=== PATIENT | male | born 1965 | race Caucasian/White ===

== ENCOUNTER 2019-11-02 06:13 | Day surgery (SDC) | payer OTHER, SELFPAY | END 2019-11-02 08:49 | disposition home or self-care (01) | PROVIDERS: PCP Family Medicine; Visit Provider Surgery | DX: Z12.11 Encounter for screening for malignant neoplasm of colon (principal); K57.90 Diverticulosis of intestine, part unspecified, without perforation or abscess without bleeding; D12.3 Benign neoplasm of transverse colon | CPT/HCPCS: 45380; 812; 88305; J2704; J7120 ==

== ENCOUNTER 2020-03-27 12:25 | Outpatient (CLI) | payer OTHER, SELFPAY ==
--- NOTE | ~2020-03-27 | XR_ITS ---
EXAMINATION: XR soft tissue neck DATE: 03/27/2020 12:53 INDICATION: Throat pain. Neck pain. [place] syndrome. TECHNIQUE: 2 views of the neck soft tissues were obtained. COMPARISON: None. FINDINGS: The adenoids, palatine tonsils, epiglottis, prevertebral soft tissues, and airway are dorothy l. No radiopaque foreign body. There is moderate cervical spondylosis. There is no visible calcificat ion or ossification of the stylohyoid ligaments to suggest [place] syndrome. IMPRESSION: 1. No evidence of [place] syndrome. 2. Moderate cervical spondylosis. Reviewed, dictated and finalized at location A.
== END 2020-03-27 12:26 | disposition home or self-care (01) ==
LOC: CHSIMG 12:28
PROVIDERS: PCP Family Medicine; Visit Provider Otolaryngology
DX: M54.2 Cervicalgia (principal); R07.0 Pain in throat; M24.20 Disorder of ligament, unspecified site
CPT/HCPCS: 70360

== ENCOUNTER 2020-07-04 12:14 | Outpatient (CLI) | payer OTHER, SELFPAY ==
--- NOTE | 2020-07-04 12:22 | ECHO_ITS ---
Patient Info Name: Devonte Olivera Age: 54 years : 1965 Gender: Male Ht: 68 in Wt: 195 lbs BSA: 2.08 m2 HR: 58 bpm BP: 142 / 79 mmHg Technical Quality: Fair Exam Date: 07/04/2020 12:25 PM Exam Location: [facility] Patient Status: Outpatient Admit Date: 07/04/2020 Staff Ordering Physician: Zachary Zimmerman MD Orthodontic Technician Assistant: Tamara Fisher RDCS Attending Provider: Zachary Zimmerman MD Referring Physician: Erasmo MURILLO; Exam Type: CA echo doppler color flow Study Info Indications I10 - Essential (primary) hypertension Complete two-dimensional, color flow and Doppler transthoracic echocardiogram is performed with contrast to opacify the left ventricle and to improve the deliniation of the left ventricle endocardial borders. Contrast/Agitated Saline Contrast/Ag. Saline: Definity Amount: 3.00 ml New IV Access: Antecubital Space and Right Site Condition: No extravasation, Site dressing applied and IV removed History/Risk Factors Hypertension: Yes Dyslipidemia: No Obesity: Yes Family History: Diabetes Mellitus, Coronary Artery Disease Frailty Scale (CSHA): 2: Well Summary 1. Left ventricular chamber dimension is normal. 2. Definity contrast administered improved wall motion interpretation. 3. Left ventricular systolic function is normal, estimated at 60-65%. 4. There is moderately increased left ventricular wall thickness. 5. The left ventricular diastolic function is grade I diastolic dysfunction. 6. E/e' 5 is not elevated. 7. There is mild aortic valve regurgitation. 8. There is mild pulmonic regurgitation. 9. Aortic sinotubular junction is mildly dilated at 4.1 cm. Left Ventricle E/e' 5 is not elevated. Definity contrast administered improved wall motion interpretation. Left ventricular chamber dimension is normal. Left ventricular systolic function is normal, estimated at 60-65%. There is moderately increased left ventricular wall thickness. The left ventricular diastolic function is grade I diastolic dysfunction. Right Ventricle Right ventricular chamber dimension is normal. Right ventricular systolic function is normal. Left Atria Left atrial chamber dimension is normal. Right Atria Right atrial chamber dimension is normal. Aortic Valve The aortic valve is trileaflet. There is no aortic valve stenosis. There is mild aortic valve regurgitation. Pulmonic Valve There is mild pulmonic regurgitation. Mitral Valve There is no mitral valve stenosis. There is no mitral valve regurgitation. Tricuspid Valve There is no tricuspid valve regurgitation. Pericardium/Pleural There is no pericardial effusion. Inferior Vena Cava Normal inferior vena cava with >50% collapse upon inspiration consistent with normal right atrial pressure, 5 mmHg. Aorta Aortic sinotubular junction is mildly dilated at 4.1 cm. The aortic root size at the sinus of Valsalva is normal. Left Ventricular Outflow Tract Name Value Normal LVOT 2D LVOT Diameter 2.4 cm LVOT Doppler LVOT Peak Velocity
== END 2020-07-04 12:15 | disposition home or self-care (01) ==
LOC: CHSIMG 12:16
PROVIDERS: PCP Family Medicine; Visit Provider Family Medicine
DX: I10 Essential (primary) hypertension (principal)
CPT/HCPCS: C8929

== ENCOUNTER 2021-08-28 11:16 | Emergency (ER) | payer OTHER, SELFPAY ==
[2021-08-28 11:18] VITALS: BP 170/103; PULSE 65; RESP 14; TEMP 36.1; O2SAT 100
[2021-08-28] MEDS: KETOROLAC 30 MG/ML VIAL (*BKC) IM (13:51)
--- NOTE | 2021-08-28 14:23 | ED.GENADULT ---
HPI - General Adult General Chief complaint: Unspecified Stated complaint: attacks Time Seen by Provider: 08/28/21 12:54 Source: patient History of Present Illness HPI narrative: Patient presents with intermittent jaw pain. 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 He has previously seen ENT at [facility] have tried simple injection which improved his symptoms for approximate 1 year. He has had a slight increase over the past couple weeks was started on carbamazepine however today his symptoms were more severe so he came to the ER for evaluation. Reports he is getting sharp shooting pains in his neck every 10 minutes similar to his prior ligamentous pain. He denies any recent trauma denies any fevers, cough, congestion. In between the episodes he feels normal denies any sore throat or difficulty breathing these episodes are transient and do cause a choking sensation. Related Data Home Medications Medication Instructions Recorded Confirmed lisinopril 10 mg tablet 10 mg PO DAILY 09/14/19 09/22/19 carbamazepine 100 mg 100 mg PO Q12H 03/27/20 capsule,extended release [id number] Allergies Allergy/AdvReac Type Severity Reaction Status Date / Time No Known Allergies Allergy Unverified 08/28/21 12:49 Review of Systems Review of Systems: CONSTITUTIONAL: Denies fever, chills, or sweats. EYES: Denies visual changes, redness, or discharge. ENT: Denies rhinorrhea, congestion, sore throat, or otalgia. CARDIOVASCULAR: Denies chest pain, palpitations, or edema. RESPIRATORY: Denies cough or dyspnea. GASTROINTESTINAL: Denies abdominal pain, nausea, vomiting, or diarrhea. GENITOURINARY: Denies dysuria or hematuria. SKIN: Denies rash or itching. MUSCULOSKELETAL: Denies back pain, joint pain, or myalgia. NEUROLOGIC: Denies headache, numbness, dizziness, or weakness. PSYCHIATRIC: Denies anxiety or depression. All systems reviewed & are unremarkable except as noted in HPI and below PMFSH Past Medical History Medical History (Updated 08/28/21 @ 14:27 by Satish Marti MD) Anxiety Erectile disorder due to medical condition in male GERD (gastroesophageal reflux disease) HTN (hypertension) Periumbilic abdominal tenderness Surgical History Surgical History H/O sinus surgery History of adenoidectomy Hx of tonsillectomy Family History Family History Unknown Diabetes mellitus Drug abuse Cerebrovascular accident Hypertension Kidney disease Cancer Sibling Aortic aneurysm Social History Social History Smoking status: Never smoker Alcohol intake: current Exam Narrative: GENERAL: Well-appearing, well-nourished, and in no acute distress. HEAD: Normocephalic, atraumatic. EYES: PERRLA and EOMI. ENT: Nares clear, no rhinorrhea or epistaxis. Mucous membranes moist. NECK: Supple. No masses. No JVD CHEST: Clear to auscultation. No respiratory distress. No wheezes rales or rhonchi HEART: Regular rate and rhythm. No murmur heard. Normal peripheral pulses. EXTREMITIES: Normal range of motion. No edema. SKIN: Warm, dry, no rash. NEURO: No focal deficits. Alert and oriented x3. PSYCH: Normal mood and affect. Course Reevaluation(s) Reevaluation #1: Patient is resting comfortably attempt to get a hold of his ENT doctor at [facility] however they are out of town patient did schedule appointment with them early next week. Discussed case with ENT at this facility does not perform the triamcinolone injections. Date: 08/28/21 Time: 14:25 Vital Signs Vital signs: Vital Signs Temperature 36.1 C L 08/28/21 11:18 Pulse Rate 65 08/28/21 11:18 Respiratory Rate 14 08/28/21 11:18 Blood Pressure 170/103 H 08/28/21 11:18 Pulse Oximetry 100 08/28/21 11:18 Temperature 36.1 C L 08/28/21 11:
== END 2021-08-28 14:34 | disposition home or self-care (01) ==
PROVIDERS: Emergency Provider Emergency Medicine; PCP Family Medicine
DX: M54.2 Cervicalgia (principal); I10 Essential (primary) hypertension
CPT/HCPCS: 96372; 99283; J1885

== ENCOUNTER 2022-05-04 10:31 | Outpatient (CLI) | payer OTHER, SELFPAY ==
[2022-05-04 11:06] LABS: SARS-CoV-2 Ag Negative (Negative)
== END 2022-05-04 10:32 | disposition home or self-care (01) ==
LOC: CHSLAB 10:36
PROVIDERS: PCP Family Medicine; Visit Provider Nurse Practitioner Family
DX: Z20.822 Contact with and (suspected) exposure to COVID-19 (principal)
CPT/HCPCS: 87426; C9803

== ENCOUNTER 2022-06-24 11:22 | Outpatient (CLI) | payer OTHER, SELFPAY ==
--- NOTE | ~2022-06-24 | XR_ITS ---
EXAM: XR foot RT min 3V, XR foot LT min 3V DATE: 06/24/2022 11:51 (accession [id number]), 06/24/2022 11:53 (accession [id number]) HISTORY: pain @ RT first digit/MT saadia. w/ flex ext . COMPARISON: None available. FINDINGS: Normal mineralization. No fracture or dislocation. No lytic or blastic lesion. Moderate de generative joint disease at the first MTP joints bilaterally. Achilles enthesopathy on the right. Macario ateral plantar enthesopathy. No erosion or periosteal change. Soft tissues within normal limits. IMPRESSION: Moderate osteophytosis of the bilateral MTP joints, slightly worse on the right. Reviewed, dictated and finalized at location K. IMPRESSION: Moderate osteophytosis of the bilateral MTP joints, slightly worse on the right.
== END 2022-06-24 11:23 | disposition home or self-care (01) ==
LOC: CHSIMG 11:25
PROVIDERS: PCP Family Medicine; Visit Provider Family Medicine
DX: M79.671 Pain in right foot (principal)
CPT/HCPCS: 73630

== ENCOUNTER 2022-09-09 15:50 | Outpatient (CLI) | payer OTHER, SELFPAY ==
--- NOTE | ~2022-09-09 | XR_ITS ---
Cervical Spine: AP, lateral, open-mouth views Clinical History: Pain Findings: There is straightening of the normal cervical lordosis. No fracture evident. Grade 1 nancy listhesis of C3 over C4 measures 3 mm. There is moderate degenerative disc change at C5-C6 and C6-C7. The intervertebral disc spaces are well maintained. Pre-vertebral soft tissues are unremarkable. Impression: 3 mm anterolisthesis of C3 over C4. Degenerative disc changes, as above. Reviewed, dictated and finalized at [facility]. 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 Degenerative disc changes, as above.
== END 2022-09-09 15:51 | disposition home or self-care (01) ==
LOC: CHSIMG 15:52
PROVIDERS: PCP Family Medicine; Visit Provider Family Medicine
DX: M54.2 Cervicalgia (principal); M43.12 Spondylolisthesis, cervical region
CPT/HCPCS: 72050

== ENCOUNTER 2022-09-24 16:19 | Outpatient (RCR) | payer OTHER, SELFPAY ==
--- NOTE | 2022-09-24 17:21 | PTOPEVAL1 ---
Assessment and note entered by JT File, PT Evaluation Information Assessment Status Evaluation Diagnosis cervicalgia Onset 08/20/22 Subjective Information patient reports he is having pinched nerve symptoms from his neck. he reports numbness in the L hand. he reports it started out as constant, but is now intermittent. he reports he also has contractions in the triceps and forearm of the L arm. he reports he has been having pain since the beginning of august. he reports no change in activity or injury. 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 he reports he has had an xray of the cervical spine. he reports he has not had an MRI. he reports his numbness is not reducing his sensation, but feels deep in the hand . he reports he has been doing some neck stretches on his own at home. he reports he was taking some mm relaxors but stopped due to side effects. alec denies any dizziness, blurred vision, or double vision. he reports no lightheadedness. Reported Pain Level Pain Score 1: Self Report Assessment PT Clinical Summary mr. issa presents to skilled PT services for neck and L UE pain. he presents this date with signs and symptoms consistent with a L cervical radiculopathy from DDD of the lower cervical spine . he would benefit from continued skilled PT to improve his objective/functional deficits and progress towards a return to his prior level functional activity performance/quality of life. Plan of Care Interventions Electrical Stimulation,Hot Pack/Cold Pack,Manual Therapy,Mechanical Traction,Patient/Caregiver Educati,Therapeutic Activities,Therapeutic Exercise PT Services Indicated Yes Treatment Frequency and 3x weekly for 12 visits Duration These treatments will address the objective and functional deficits as defined above. The patient will be advanced safely and appropriately in order for the patient to progress towards his/her prior level of function. Additional exercises will be introduced and as well as a comprehensive home exercise program upon discharge, if needed, ?to ensure carryover of functional gains achieved in the clinic. This treatment plan has been reviewed and agreement upon by the patient.
--- NOTE | 2022-10-14 08:23 | PCPTNOTE ---
Mr. Olivera has attended a total of 8 treatment sessions thus far. Treatment has focused on manual techniques to reduce pain, mechanical traction to reduce left u.e. radicular symptoms and therapeutic exercise addressing postural awareness. Since beginning treatment pt. has demonstrated improvements in overall cervical spine mobility and reduction in left u.e. radicular symptoms. Recommend continued skilled PT to continue to improve postural awareness to continue to reduce neck pain and left u.e. radiculopathy. Thank you for the referral of this patient. Bairno Guerrero, MPT
--- NOTE | 2022-10-14 08:28 | PCPTNOTE ---
Mr. Olivera has attended a total of 8 treatment sessions. Treatment thus far has consisted of therapeutic exercise addressing strength and postural control, manual therapy techniques to improve soft tissue mobility, mechanical traction and other modalities to reduce pain. Pt. has demonstrated progress in regards to cervical spine rotation and reported reduction in radicular symptoms into the left u.e. Pt. has 4 remaining sessions on his current POC and recommend continued skilled PT per POC to continue to reduce pain and improve postural awareness. Thank you for the referral of this patient. Bairon Guerrero, MPT
--- NOTE | 2022-10-29 06:50 | BUPTOPEVAL1 ---
Assessment and note entered by JT File, PT Evaluation Information Assessment Status Re-evaluation Diagnosis cervicalgia Onset 08/20/22 Subjective Information patient presents to skilled PT for his 12th skilled therapy visit this date. he reports prior to earlier this week he had no seen much improvement in his symptoms. however, he reports with the addition of 1st rib mobs he experienced nearly no symptoms for almost a full day. he reports he is hopeful continuing therapy to work on this more will alleviate all of his symptoms for good. Reported Pain Level Pain Score 0: Self Report Pain Score 3: Self Report Assessment PT Clinical Summary mr. issa presents to skilled PT services for his 12th skilled therapy visit this date. today he reports continued radicualr symptoms in the L UE. however, he reports he did have a bout of no symptosm for a whole day after the initiation of 1st rib mobs. he has met goals for HEP performance and rom of the cervical spine, and is progressing towards achievement of all other goals. he would benefit from continued skilled PT to address the 1st rib mobility, continue with cervical radiculopathy treatment, and meet his remaining unmet goals. Plan of Care Interventions Electrical Stimulation,Hot Pack/Cold Pack,Manual Therapy,Mechanical Traction,Patient/Caregiver Educati,Therapeutic Activities,Therapeutic Exercise PT Services Indicated Yes Treatment Frequency and continue skilled PT 2x weekly for 6 more visits Duration These treatments will address the objective and functional deficits as defined above. The patient will be advanced safely and appropriately in order for the patient to progress towards his/her prior level of function. Additional exercises will be introduced and as well as a comprehensive home exercise program upon discharge, if needed, ?to ensure carryover of functional gains achieved in the clinic. This treatment plan has been reviewed and agreement upon by the patient.
== END 2022-11-11 15:50 | disposition home or self-care (01) ==
LOC: CHSPT 16:19
PROVIDERS: PCP Family Medicine; Visit Provider Family Medicine
DX: M54.2 Cervicalgia (principal)
CPT/HCPCS: 97012; 97014; 97110; 97140; 97161; G0283

== ENCOUNTER → 2022-10-22 15:54 | Outpatient (CLI) | payer OTHER, SELFPAY ==
--- NOTE | ~2022-10-22 | MR_ITS ---
EXAMINATION: MR cervical spine wo con DATE: 10/22/2022 16:33 INDICATION: Neck pain. TECHNIQUE: Magnetic resonance imaging (MRI) of the cervical spine was performed without intravenous c ontrast. COMPARISON: Cervical spine radiographs 09/09/2022 FINDINGS: There is 4 degrees dextrocurvature of cervical spine. There is kyphosis of cervical spine. There is 2 mm anterolisthesis of C3 on C4. Vertebral body heights are normal. There is moderately dec reased disc height at C3-C4, mildly decreased disc height at C4-C5, and severely decreased disc heigh t at C5-C6 and C6-C7. The spinal cord signal intensity is normal. The following disc levels are speci fically discussed: C2-C3: The disc does not extend beyond the endplate margin. There is mild bilateral uncovertebral donna nt osteoarthritis. There is severe right and moderate left facet joint osteoarthritis. There is moder ate right and mild left neural foraminal stenosis. There is no central canal stenosis. C3-C4: The disc is bulging. There is moderate right and severe left uncovertebral joint osteoarthriti s. There is moderate right and severe left facet joint osteoarthritis. There is mild right and modera te left neural foraminal stenosis. There is mild central canal stenosis. C4-C5: The disc does not extend beyond the endplate margin. There is mild bilateral uncovertebral donna nt osteoarthritis. There is mild right and severe left facet joint osteoarthritis. There is mild righ t and moderate left neural foraminal stenosis. There is no central canal stenosis. C5-C6: The disc is bulging. There is severe bilateral uncovertebral joint osteoarthritis. There is mi ld bilateral facet joint osteoarthritis. There is moderate bilateral neural foraminal stenosis. There is mild central canal stenosis. C6-C7: The disc is bulging. There is severe bilateral uncovertebral joint osteoarthritis. There is se niall bilateral facet joint osteoarthritis. There is moderate bilateral neural foraminal stenosis. The re is mild central canal stenosis. C7-T1: The disc does not extend beyond the endplate margin. There is no uncovertebral joint osteoarth ritis. There is mild right and severe left facet joint osteoarthritis. There is mild bilateral neural foraminal stenosis. There is no central canal stenosis. IMPRESSION: 1. Severe cervical spondylosis. Reviewed, dictated and finalized at location A. OLOGY TECH
== END ==
PROVIDERS: PCP Family Medicine; Visit Provider Family Medicine
DX: M54.2 Cervicalgia (principal); M43.02 Spondylolysis, cervical region
CPT/HCPCS: 72141

== ENCOUNTER 2023-10-08 16:25 | Outpatient (RCR) | payer OTHER, SELFPAY ==
--- NOTE | 2023-10-05 10:00 | PCPTNOTE ---
patient's evaluation today was rescheduled to this Wednesday at 1645.
--- NOTE | 2023-10-08 17:34 | OPREHPOC ---
Outpatient Therapy Plan of Care This is a Multidisciplinary Plan of Care that may contain components documented by all disciplines (PT, OT, and ST.) PT Problem 1 PT Problem #1 Knowledge Deficit PT Goal 1 Goal 1. independent and compliant with HEP Target Visit 5 PT Problem 2 PT Problem #2 Pain PT Goal 1 Goal 1. decrease pain at worst to 2/10 in the R posterior neck Target Visit 9 PT Problem 3 PT Problem #3 Impaired Functional Mobil PT Goal 1 Goal 1. patient to report no tenderness to palpation. 2. no pain with combined R cervical rotation and extension 3. NDI to display 6% or less functional deficits 4. 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 Target Visit 9
--- NOTE | 2023-10-08 17:35 | PTOPEVAL1 ---
Assessment and note entered by JT File, PT Evaluation Information Assessment Status Evaluation Diagnosis cervical spondylosis Onset 09/29/23 Subjective Information patient reports he had radio-frequency ablation on the R side on 08/06/23. he reports since this procedure he has been left with numbness in the back of the neck. he reports there is one spot in the back of the neck that is tight and painful. he reports he cannot get it to release. he reports he has not had any injections for this issues, but has tried several meds for this issue. he reports he has increased symptoms in this area with poor posture, especially prolonged poor posture. 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 he reports he is having no UE radicular symptoms. Reported Pain Level Pain Score 3: Self Report Assessment PT Clinical Summary mr. ryder is a 57 yo man who presents to skilled PT services for evaluation and treatment of R posterior neck pain following radio frequency ablation late last year. he presents with tenderness in the R upper cervical spine that is muscular in presentation. likely the levator scapuale is involved. he would benefit from continued skilled PT to improve his objective/ functional deficits and return to his prior level functional activity performance/quality of life. Plan of Care Interventions Electrical Stimulation,Hot Pack/Cold Pack,Manual Therapy,Mechanical Traction,Neuro Re-education, Patient/Caregiver Educati,Therapeutic Activities, Therapeutic Exercise,Ultrasound PT Services Indicated Yes Treatment Frequency and 3x weekly for 9 visits Duration These treatments will address the objective and functional deficits as defined above. The patient will be advanced safely and appropriately in order for the patient to progress towards his/her prior level of function. Additional exercises will be introduced and as well as a comprehensive home exercise program upon discharge, if needed, ?to ensure carryover of functional gains achieved in the clinic. This treatment plan has been reviewed and agreement upon by the patient.
== END 2023-10-21 20:00 | disposition home or self-care (01) ==
LOC: CHSPT 16:25
PROVIDERS: Visit Provider Nurse Practitioner Family
DX: M47.812 Spondylosis without myelopathy or radiculopathy, cervical region (principal)
CPT/HCPCS: 97014; 97110; 97140; 97161; G0283

== ENCOUNTER 2024-03-08 09:37 | Outpatient (CLI) | payer OTHER, SELFPAY ==
--- NOTE | ~2024-03-08 | CT_ITS ---
CT soft tissue neck w con Ordering provider: Diana Espana History: 58 years Male with . neck throat pain, neck mass R side . Comparison: None. Technique: CT soft tissues neck was performed with contrast. Radiation reduction technique utilized. DLP is 427.06 mGy. Findings: LOWER HEAD: The visualized brain parenchyma, optic globes/orbits and mastoids are normal. The visua lized paranasal sinuses are well aerated. SALIVARY GLANDS: Normal. THYROID: Normal. SUPRAHYOID DEEP SPACES: Enlarged lymph nodes in the posterior triangles are noted with the largest me asures 1.2 cm. Enlarged lymph node in the right and left parapharyngeal spaces is noted with the larg est on the left side measures 1.5 cm. The largest on the right side is also 1.5 cm. CAROTID ARTERIES: Retropharyngeal left carotid arterial otherwise, normal. JUGULAR VEINS: Normal. TONSILS: Normal. ORAL CAVITY: Partially obscured by dental amalgam but normal as visualized. PHARYNX, LARYNX AND TRACHEA: Patent and normal. No prevertebral soft tissue swelling. SUPERFICIAL SOFT TISSUES: Normal. No lymphadenopathy or neck mass. THORACIC INLET/VISUALIZED UPPER CHEST: Normal. SKELETAL: Age appropriate degenerative changes. IMPRESSION: 1. Bilateral lymphadenopathy in the posterior triangle and in the parapharyngeal spaces otherwise, n o definite abnormality seen. Reviewed, dictated and finalized at location A. IMPRESSION: 1. Bilateral lymphadenopathy in the posterior triangle and in the parapharynge al spaces otherwise, no definite abnormality seen.
[2024-03-08 10:08] LABS: Estimated Glomerular Filt Rate > 60
== END 2024-03-08 09:38 ==
LOC: MICIMG 09:38
PROVIDERS: PCP Family Medicine
DX: R59.0 Localized enlarged lymph nodes (principal)
CPT/HCPCS: 70491; Q9967